=== PATIENT | female | born 1965 | race African-American/Black ===

== ENCOUNTER 2018-10-15 12:47 | Emergency (ER) | payer OTHER ==
--- NOTE | 2018-10-15 13:12 | ER Document Report ---
ED General - General Stated Complaint: DIFFICULTY BREATHING Time Seen by Provider: 10/15/18 13:02 TRAVEL OUTSIDE OF THE [place] IN LAST 30 DAYS: No - HPI Notes: Patient is a 53-year-old female that presents to the emergency department for chief complaint of cardiac arrest. Patient called EMS from her home around 1015 this morning complaining of shortness of breath for the last 2 days. EMS reported she had recently been diagnosed with PE and started on anticoagulation. While EMS was at the house patient went into V. tach arrest. EMS reports CPR from 1027 and Rosc at 1041. [facility] was called and while in transit to [facility] patient arrested again which is why they diverted to this emergency department. Past Medical History: PE Past Surgical History: Unknown Social History: Unknown Family History: Unknown Allergies: Reviewed, see documented allergy list. REVIEW OF SYSTEMS: Unable to obtain because of acuity of condition PHYSICAL EXAMINATION: Vital signs reviewed, nursing noted reviewed. GENERAL: Unresponsive, obese HEAD: Atraumatic, normocephalic. EYES: Fixed dilated pupils ENT: nares patent, Rosalio airway with bright red blood in tube. NECK: Trachea midline LUNGS: Significantly diminished bilaterally asystole HEART: Pulseless ABDOMEN: Soft, obese EXTREMITIES: Bilateral lower extremity edema, bilateral pretibial IOs NEUROLOGICAL: No focal neurological deficits. Moves all extremities spontaneously Motor and sensory grossly intact on exam. SKIN: Warm, Dry, normal turgor, no rashes or lesions noted on exposed skin - Related Data Allergies/Adverse Reactions: nitrofurantoin [From Macrobid] Allergy (Intermediate, Verified 02/28/12 14:07) Hives nitrofurantoin macrocrystalline [From Macrobid] Allergy (Intermediate, Verified 02/28/12 14:07) Hives Past Medical History - Social History Smoking Status: Unknown if Ever Smoked Family History: None, Other - unable to obtain Review of Systems - Review of Systems -: Yes ROS unobtainable due to patient's medical condition Physical Exam - Notes Notes: Dictated Course - Re-evaluation Re-evalutation: 10/15/18 13:10 Patient arrived by [facility] after receiving multiple rounds of CPR with ROSC. Initial downtime was 1027 which was more than 2 hours prior to presentation. She had received bicarb, calcium, amiodarone, epinephrine and was on a Levophed infusion. Patient was pulseless in PEA at presentation to the emergency room. Rosalio airway was in place and working appropriately. CPR was initiated and ACLS continued through 4 rounds. Patient continued to be in asystole. No cardiac movement was seen on bedside ultrasound. Time of 1258 Critical Care Note - Critical Care Note Total time excluding time spent on procedures (mins): 35 Comments: ACLS. cardiac arrest. Discharge - Discharge Clinical Impression: Cardiac arrest, Disposition: OTHER
[2018-10-15] MEDS ORDERED: EPINEPHRINE INJ 1 MG/10 ML DISP.SYRIN ONE (21:23)
== END 2018-10-15 18:15 | disposition expired ==
LOC: ER 12:47
DX: I46.9 Cardiac arrest, cause unspecified (principal); R06.00 Dyspnea, unspecified
CPT/HCPCS: 99291; J0171